=== PATIENT | female | born 2000 | race Caucasian/White ===

== ENCOUNTER 2021-02-13 13:51 | Emergency (ER) | payer OTHER ==
[2021-02-13] MEDS ORDERED: IBUPROFEN800 MG PO (15:28)
== END 2021-02-13 16:17 | disposition home or self-care (01) ==
LOC: ER1 13:51
DX: S93.401A Sprain of unspecified ligament of right ankle, initial encounter (principal); Z88.1 Allergy status to other antibiotic agents; X58.XXXA Exposure to other specified factors, initial encounter
CPT/HCPCS: 73590; 73610; 96372; 99283; J1885